=== PATIENT | male | born 2000 | race Caucasian/White ===

== ENCOUNTER 2021-04-15 13:49 | Observation (INO) ==
[2021-04-15 14:38] LABS: Basophils # (auto) 0.03 K/uL (0-0.2); Basophils % (auto) 0.4 %; Eosinophils # (auto) 0.17 K/uL (0-0.5); Hematocrit (blood only) 46.7 % (42-52); Immature Granulocytes # (auto) 0.01 K/uL (0.00-0.02); Immature Granulocytes % (auto) 0.1 %; Lymphocytes # (auto) 1.92 K/uL (1.2-3.4); Lymphocytes % (auto) 22.8 %; Mean Corpuscular Hemoglobin 28.2 pg (25-34); Mean Corpuscular Hgb Conc 34.3 g/dL (32-36); Mean Corpuscular Volume 82.2 fL (80-100); Mean Platelet Volume 9.5 fL (7.4-10.4); Monocytes # (auto) 1.42 K/uL (0.11-0.59); Monocytes % (auto) 16.8 %; Neutrophils # (auto) 4.88 K/uL (1.4-6.5); Neutrophils % (auto) 57.9 %; Platelet Count 359 K/uL (130-400); RDW Coefficient of Variation 14.5 % (11.5-14.5); RDW Standard Deviation 43.5 fL (36.4-46.3); Red Blood Count 5.68 M/uL (4.7-6.1); White Blood Count 8.43 K/uL (4.8-10.8)
[2021-04-15] MEDS ORDERED: SODIUM CHLORIDE 0.9% 1000ML 1,000 ML IV ONE (14:46)
--- NOTE | 2021-04-15 14:53 | Emergency Department Note ---
History of Present Illness General Chief complaint: Abdominal Pain Stated complaint: PANCREATITIS Time Seen by Provider: 04/15/21 14:30 Source: patient History of Present Illness Provider complaint: Abdominal pain Onset (ago): day(s) 6 Location: abdomen Radiation: back Pain Consistency: + constant Maximum Pain Intensity: 4 Quality: + aching Exacerbated By: + eating Associated symptoms: no chest pain, no cough, no fever/chills, no nausea/vomiting or no shortness of breath This is a 20-year-old male with a history of autoimmune pancreatitis presenting with abdominal pain for the past 6 days. He describes the pain as an achy sensation in the middle of his abdomen with radiation to his back. He states it has been constant. He rates it a 4 out of 10 in severity. It is worse with eating. He denies any associated vomiting or fever. He has had diarrhea. He denies any black or bloody stools. He was at [facility] and had a lipase of 4000 and so was sent here for further evaluation. He denies any cough or cold symptoms, chest pain, shortness of breath, or urinary symptoms. He does not drink alcohol. He does still have his gallbladder. Home Medications Medication Instructions Recorded Confirmed Type budesonide-formoterol HFA 160 2 puff INHALATION BID 04/15/21 04/15/21 History mcg-4.5 mcg/actuation aerosol inhaler (Symbicort) etanercept 50 mg/mL (1 mL) 50 mg SUBCUT DIRECTED 04/15/21 04/15/21 History subcutaneous syringe (Enbrel) montelukast 10 mg tablet 10 mg PO DAILY 04/15/21 04/15/21 History (Singulair) Allergies Allergy/AdvReac Type Severity Reaction Status Date / Time gluten Allergy Severe CELIAC Verified 04/15/21 16:17 DISEASE Past Med/Surg History Medical History Autoimmune pancreatitis Celiac disease Psoriasis Social History Smoking Status: Never smoker Feels Safe at Home: Yes Review of Systems See HPI for pertinent positives & negatives. and A total of 10 systems reviewed and were otherwise negative Physical Exam Vital Signs Vital Signs - 24 hr 04/15/21 13:52 04/15/21 15:30 04/15/21 15:37 Temperature 36.8 C Temperature Source Temporal Artery Scan Pulse Rate 102 H 90 Pulse Rate [Right Finger] 87 Pulse Rate from SpO2 Sensor 90 Respiratory Rate 16 20 16 Respiratory Effort / Characteristics Non-Labored Spontaneous Blood Pressure 124/79 Blood Pressure [Right Arm] 151/79 H Blood Pressure Mean 94 Blood Pressure Mean [Right Arm] 103 Blood Pressure Position [Right Arm] Sitting Pulse Oximetry 98 98 97 Oxygen Delivery Method Room Air Room Air Room Air Sepsis Recent Fever Within 48 Hours No Sepsis New/Unexplained Change in Mental Status No Sepsis Action Taken by Nursing No Action Required 04/15/21 15:40 04/15/21 15:50 04/15/21 16:00 Temperature Temperature Source Pulse Rate 86 90 86 Pulse Rate [Right Finger] Pulse Rate from SpO2 Sensor 88 90 87 Respiratory Rate 16 16 18 Respiratory Effort / Characteristics Blood Pressure 139/80 Blood Pressure [Right Arm] Blood Pressure Mean 99 Blood Pressure Mean [Right Arm] Blood Pressure Position [Right Arm] Pulse Oximetry 98 99 99 Oxygen Delivery Method Room Air Sepsis Recent Fever Within 48 Hours Sepsis New/Unexplained Change in Mental Status Sepsis Action Taken by Nursing 04/15/21 16:10 04/15/21 16:20 04/15/21 16:30 Temperature Temperature Source Pulse Rate 90 80 85 Pulse Rate [Right Finger] Pulse Rate from SpO2 Sensor 90 81 87 Respiratory Rate 20 18 20 Respiratory Effort / Characteristics Blood Pressure Blood Pressure [Right Arm] Blood Pressure Mean Blood Pressure Mean [Right Arm] Blood Pressure Position [Right Arm] Pulse Oximetry 98 98 98 Oxygen Delivery Method Sepsis Recent Fever Within 48 Hours Sepsis New/Unexplained Change in Mental Status Sepsis Action Taken by Nursing 04/15/21 16:40 Temperature Temperature Source Pulse Rate 78 Pulse Rate [Right Finger] Pulse Rate from SpO2 Sensor 74 Respiratory Rate 13 Respiratory Effort / Characteristics Blood Pressure Blood Pressure [Right Arm] Blood Pressure Mean Blood Pressure Mean [Right Arm] Blood Pressure Position [Right Arm] Pulse Oximetry 99 Oxygen Delivery Method Sepsis Recent Fever Within 48 Hours Sepsis New/Unexplained Change in Mental Status Sepsis Action Taken by Nursing Constitutional: Vital signs reviewed. Eyes: Pupils are equal round reactive to light. Conjunctiva are noninjected. ENT: Pharynx is clear without erythema or exudate. Mucous membranes are moist. Neck supple without meningeal signs. Respiratory: Clear to auscultation bilaterally. Breath sounds are equal bilaterally. Cardiovascular: Regular rate and rhythm. No rubs or gallops. GI: Soft, nondistended with mild periumbilical tenderness. Bowel sounds are present. Musculoskeletal: No peripheral edema. No CVA tenderness. Integumentary: No cyanosis. or jaundice. Negative Suresh and Santos Loomis signs. Neurological: The patient is awake and alert. No focal deficits. Psychiatric: Normal affect. Not anxious appearing. Course Administered Medications Discontinued Medications Sodium Chloride (Nss 1000ml) 1,000 mls @ 999 mls/hr IV .Q1H1M ONE Stop: 04/15/21 15:46 Last Infusion: 04/15/21 16:21 Dose: 0 mls/hr Documented by: [id number] Admin: 04/15/21 15:14 Dose: 999 mls/hr Documented by: [id number] Medical Decision Making Differential Diagnosis Pancreatitis, peptic ulcer disease, cholelithiasis, choledocholithiasis, alcohol abuse, autoimmune pancreatitis Medical Records Attestation: I reviewed the patient's medical records. I did perform a limited focused review of portions of the patient's old chart on the electronic medical record. The patient has had no recent pertinent visits to this hospital. Home Medications Current Medication List: was personally reviewed by me Laboratory Data Attestation: I reviewed the patient's lab results. Result diagrams: 04/15/21 14:30 04/15/21 14:30 Lab Results 04/15/21 04/15/21 04/15/21 Range/Units 14:30 14:30 15:26 WBC 8.43 (4.8-10.8) K/uL RBC 5.68 (4.7-6.1) M/uL Hgb 16.0 (14.0-18.0) g/dL Hct 46.7 (42-52) % MCV 82.2 (80-100) fL MCH 28.2 (25-34) pg MCHC 34.3 (32-36) g/dL RDW Std Deviation 43.5 (36.4-46.3) fL RDW Coeff of Florencio 14.5 (11.5-14.5) % Plt Count 359 (130-400) K/uL MPV 9.5 (7.4-10.4) fL Immature Gran % (Auto) 0.1 % Neut % (Auto) 57.9 % Lymph % (Auto) 22.8 % Ida % (Auto) 16.8 % Eos % (Auto) 2.0 % Baso % (Auto) 0.4 % Neut # (Auto) 4.88 (1.4-6.5) K/uL Lymph # (Auto) 1.92 (1.2-3.4) K/uL Ida # (Auto) 1.42 H (0.11-0.59) K/uL Eos # (Auto) 0.17 (0-0.5) K/uL Baso # (Auto) 0.03 (0-0.2) K/uL Immature Gran # (Auto) 0.01 (0.00-0.02) K/uL Sodium 137 (136-145) mmol/L Potassium 4.0 (3.5-5.1) mmol/L Chloride 100 (98-107) mmol/L Carbon Dioxide 29 (21-32) mmol/L Anion Gap 8 (3-11) BUN 12 (6-23) mg/dl Creatinine 1.13 (0.6-1.4) mg/dl Est Cr Clr Drug Dosing 122.2 ml/min Est GFR ( Amer) 107.8 ml/min Est GFR (Non-Af Amer) 93.1 ml/min BUN/Creatinine Ratio 10.6 (10-20) Glucose 90 (70-99(Fasting)) mg/dl Calcium 10.1 (8.5-10.1) mg/dl Total Bilirubin 0.7 (0.2-1.0) mg/dl AST 16 (13-39) U/L ALT 33 (7-52) U/L Alkaline Phosphatase 83 (34-104) U/L Total Protein 8.0 (6.0-8.3) gm/dl Albumin 4.6 (3.4-5.0) gm/dl Globulin 3.4 (2.5-4.0) gm/dl Albumin/Globulin Ratio 1.4 (0.9-2) Lipase 836 H (11-82) U/L SARS-CoV-2, RNA, NAAT NEGATIVE (NEGATIVE) ECG Data Attestation: I personally reviewed and interpreted this ECG as follows: Indication: + abdominal pain Rate (beats per minute): 90 Rhythm: + normal sinus ECG Doyle: + Normal ECG ST segments: + repolarization abnormalities ECG Findings: no PVCs Comparison ECG Date: no prior available MDM Narrative I did evaluate the patient as noted above. The patient has a history of autoimmune pancreatitis. He is presenting with similar symptoms for the past 6 days. He had a lipase which was over 4000 at [facility] and so he was sent here. IV access was established. He was given normal saline IV.I did order and review the patient's blood work as noted in the electronic medical record. CBC is unremarkable without leukocytosis, anemia or left shift. Electrolytes and LFTs are unremarkable. Lipase is a 836. I did discuss the test results with the patient. I did discuss the case with the hospitalist and casework specialist. COVID 19 testing is negative. Impression & Plan Pancreatitis Discharge Plan Visit Data Chief Complaint: Abdominal Pain Stated Complaint: PANCREATITIS ED Provider: Jose Conde Discharge Problem: Pancreatitis Patient Disposition: Being Evaluated by Hospitalist Forms Stand Alone Forms: My [facility] Prescriptions Prescriptions: No Action montelukast [Singulair] 10 mg Tablet 10 mg PO DAILY RF: 0 Enbrel 50 mg/mL (1 mL) Syringe 50 mg SUBCUT DIRECTED RF: 0 budesonide-formoterol [Symbicort] 160-4.5 mcg/actuation Hfa Aerosol Inhaler 2 puff INHALATION BID RF: 0 Referrals Referrals: PCP,NO [Physician] -
[2021-04-15 15:00] LABS: BUN Creatinine Ratio 10.6 (10-20); Calcium 10.1 mg/dl (8.5-10.1); Creatinine Clr Calc Pharmacy 122.2 ml/min; Est GFR (African American) 107.8 ml/min; Est GFR (Non-African American) 93.1 ml/min
[2021-04-15 15:17] LABS: Albumin Globulin Ratio 1.4 (0.9-2); Albumin Level 4.6 gm/dl (3.4-5.0); Bilirubin,Total 0.7 mg/dl (0.2-1.0); Globulin 3.4 gm/dl (2.5-4.0)
[2021-04-15] MEDS ORDERED: LACTATED RINGER'S 1,000 ML IV ONE (17:16)
--- NOTE | 2021-04-15 17:19 | History & Physical Report ---
Date of Service April 15, 2021 Assessment & Plan (1) Pancreatitis: Plan: No definitive history of autoimmune pancreatis (or pancreatitis in general) per his executive associate outpatient notes. No known IgG4 elevated. Therefore will get US liver to assess for biliary dilatation and gallstones NSS 1L bolus given in ER, will give additional LR 1L bolus now then @ 125ml/hr No need for steroids or autoimmune workup at this stage - previously resolved without steroids (2) Celiac disease: Plan: Will need gluten free once able to tolerate diet (3) Psoriasis: Plan: Noted to be on Enbrel as outpatient Plan: VTE Prophylaxis - low risk Diet - NPO Disposition - admit to med/surg Admission and Anticipated Discharge Date Admission Date: Apr 15, 2021 History of Present Illness Chief Complaint: Abdominal pain Primary Care Provider: [facility] Yobany Chase is a 20 year old male who presents to the ER with abdominal pain. 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 Previous episode of pancreatitis in August 2018 resolved without admission and IV fluids given in the ER. He reports autoimmune pancreatitis was suspected due to his celiacs/psoriasis, he was on no medications suspected, does not drink alcohol and MRCP did not show biliary cause however no known IgG4 levels were taken. On this occasion he has had 6 days of intermittent umbilical abdominal pain radiating to the back. No change in bowels, melena or bright red blood in stool. Mild nausea however currently he feels this has resolved. He initially went to [facility] and lipase was elevated and on discussion with his executive associate was advised to go to the ER. Here his lipase was elevated to 836 U/L. He was referred to medicine for admission and ongoing management of pancreatitis. Allergies Allergy/AdvReac Type Severity Reaction Status Date / Time gluten Allergy Severe CELIAC Verified 04/15/21 16:17 DISEASE Home Medications Medication Instructions Recorded Confirmed Type budesonide-formoterol HFA 160 2 puff INHALATION BID 04/15/21 04/15/21 History mcg-4.5 mcg/actuation aerosol inhaler (Symbicort) etanercept 50 mg/mL (1 mL) 50 mg SUBCUT DIRECTED 04/15/21 04/15/21 History subcutaneous syringe (Enbrel) montelukast 10 mg tablet 10 mg PO DAILY 04/15/21 04/15/21 History (Singulair) Past Med/Surg History Medical History Autoimmune pancreatitis Celiac disease Psoriasis Social History Smoking Status: Never smoker Second Hand Exposure: No; Do You Dip or Chew Tobacco: No; Tobacco Cessation Education Requested by Patient: No Hx Alcohol Use: No Hx Substance Use: No Preferred Language: Icelandic Communication Ability: Effective 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 Operator 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 Required: No Beliefs That Will Affect Care: None Current Living Situation Comment: roommates Other Information That Helps Us Care for You: No Feels Safe at Home: Yes Safety Concerns: Feels Safe At This Time Assistive Devices: Glasses Review of Systems Review of Systems: All systems reviewed & are unremarkable except as noted in HPI & below Physical Exam Constitutional: WD/WN, vitals as above Eyes: + anicteric sclerae; normal pupil size ENMT: external ear and nose normal, oropharynx normal Neck: trachea midline, no thyromegaly Respiratory: normal respiratory effort, lungs clear to auscultation Cardiovascular: RRR, no murmur, no edema Gastrointestinal (Abdomen): Inspection/Auscultation: normal bowel sounds Percussion/Palpation: + abdomen tender (umbilical) and abdomen soft; no guarding and abdomen not rigid Musculoskeletal: no cyanosis or clubbing, extremities motor strength 5/5 Skin: no rashes, warm and dry Neurologic: moves all extremities and awake; not confused Psychiatric: A+Ox3, euthymic affect Results & Data Results & Data ([facility]) Vital Signs (Past 12 Hours) Vital Signs Temp Pulse Pulse Resp BP BP Pulse Ox 04/15/21 16:40 78 13 99 04/15/21 16:30 85 20 98 04/15/21 16:20 80 18 98 04/15/21 16:10 90 20 98 04/15/21 16:00 86 18 139/80 99 04/15/21 15:50 90 16 99 04/15/21 15:40 86 16 98 04/15/21 15:37 90 16 97 04/15/21 15:30 87 20 151/79 H 98 04/15/21 13:52 36.8 C 102 H 16 124/79 98 Laboratory Results Abnormal lab results 04/15/21 04/15/21 04/15/21 Range/Units 14:30 14:30 17:41 [place] # (Auto) 1.42 H (0.11-0.59) K/uL Lipase 836 H (11-82) U/L Urine Ketones 2+ H (Negative) Medications Administered ER Medications Given: NSS 1L bolus Code Status & VTE Plan Code Status Full VTE Prophylaxis Plan VTE Prophylaxis will be ordered: No Reason for no VTE drug order: Treatment not indicated Reason for no VTE mechanical prophylaxis: Treatment not indicated PG Care Time/CCT Total # of Minutes Spent Total Time Spent with Patient: Total time spent is greater than 50% in coordination of care (as documented) at patient's floor/unit and/or counseling patient: Coding Level of Care Code INT OBSERVATION CARE 50M LVL 2 Diagnoses Pancreatitis K85.90 Acute pancreatitis complication: unspecified Chronicity: acute Pancreatitis type: unspecified pancreatitis type Celiac disease K90.0 Psoriasis L40.9 (1) Pancreatitis Acute pancreatitis complication: unspecified Chronicity: acute Pancreatitis type: unspecified pancreatitis type Qualified Code(s): K85.90 - Acute pancreatitis without necrosis or infection, unspecified
[2021-04-15 17:50] LABS: Appearance Urine Clear (Clear); Bilirubin Urine Negative (Negative); Blood Urine Negative (Negative); Color Urine Dark Yellow; Glucose Urine UA Negative (Negative); Ketones Urine 2+ (Negative); Leukocyte Esterase Urine Negative (Negative); Nitrite Urine Negative (Negative); Protein Urine Negative (Negative); Urobilinogen Urine Negative (Negative)
[2021-04-15] MEDS ORDERED: NON-FORMULARY MEDICATION (Etanercept [Enbrel] 50 mg/mL (1 mL) Syringe) SQ SCH (19:52)
[2021-04-15] MEDS ORDERED: HYDROmorphone INJ 0.5 MG/0.5 ML SYR IV PRN (19:52)
[2021-04-15] MEDS: LACTATED RINGER'S 1,000 ML IV SCH (20:19)
[2021-04-15] MEDS: FLUTICASONE/VILANTEROL 200/25MCG 14 PUFFS/INHALER INH SCH (21:07)
[2021-04-15] MEDS: MONTELUKAST SODIUM 10 MG TABLET PO SCH (21:07)
[2021-04-16] MEDS ORDERED: Nursing to Pharmacy Communication SCH (02:30)
[2021-04-16] MEDS: LACTATED RINGER'S 1,000 ML IV SCH ×3 (03:51→19:44)
--- NOTE | 2021-04-16 07:41 | Ultrasound Report ---
ABDOMINAL ULTRASOUND, RIGHT UPPER QUADRANT HISTORY: Epigastric pain. pancreatitis r/o biliary dilatation. COMPARISON: None. FINDINGS: Pancreas: The pancreas is mostly obscured by bowel gas. The visualized pancreas is hypoechoic. Liver: The liver is echogenic consistent with fatty change. Focal fatty sparing adjacent to the gallb ladder fossa. Gallbladder: No gallbladder wall thickening. No gallstones. Negative sonographic Euceda sign. CBD: 6.5 mm. Right kidney: No hydronephrosis. IMPRESSION: 1. The pancreas is mostly obscured by bowel gas. The visualized pancreas is hypoechoic. This could re present findings consistent with acute pancreatitis. Recommend correlation with pancreatic enzymes. 2. No gallbladder wall thickening. No gallstones. 3. Hepatic steatosis. 4. Borderline dilated common bile duct is 6.5 mm. ACT 112: Negative or not required by law. Electronically signed by: Quirino Burrell M.D. 04/16/2021 7:39 AM
[2021-04-16 07:49] LABS: Hematocrit (blood only) 43.5 % (42-52); Hemoglobin 14.6 g/dL (14.0-18.0); Mean Corpuscular Hemoglobin 27.8 pg (25-34); Mean Corpuscular Hgb Conc 33.6 g/dL (32-36); Mean Corpuscular Volume 82.9 fL (80-100); Mean Platelet Volume 9.2 fL (7.4-10.4); Platelet Count 299 K/uL (130-400); RDW Coefficient of Variation 14.5 % (11.5-14.5); RDW Standard Deviation 43.9 fL (36.4-46.3); Red Blood Count 5.25 M/uL (4.7-6.1); White Blood Count 7.08 K/uL (4.8-10.8)
[2021-04-16 08:19] LABS: BUN Creatinine Ratio 10.5 (10-20); Calcium 8.6 mg/dl (8.5-10.1); Est GFR (Non-African American) 114.8 ml/min; Potassium 4.3 mmol/L (3.5-5.1)
[2021-04-16 08:35] LABS: Albumin Globulin Ratio 1.3 (0.9-2); Albumin Level 3.9 gm/dl (3.4-5.0); Bilirubin,Total 0.9 mg/dl (0.2-1.0); Globulin 2.9 gm/dl (2.5-4.0); Total Protein 6.8 gm/dl (6.0-8.3)
--- NOTE | 2021-04-16 12:47 | Magnetic Resonance Report ---
MRCP CLINICAL HISTORY: pancreatitis-- assess for cyst/pseudocyst, sludge TECHNIQUE: Utilizing a 1.5 Libia magnet and dedicated coil, multiplanar, multiecho imaging of [facility] er abdomen was performed utilizing heavily T2 weighted pulsing sequences without IV contrast. COMPARISON STUDY: Right upper quadrant ultrasound April 15, 2021. FINDINGS: Hepatic steatosis is better depicted on ultrasound of April 07, 2021. The liver is mildl y enlarged, measuring 20.4 cm AP dimension. No biliary ductal dilatation is present. No common bile d uct calculi are identified. There is trace peripancreatic fluid. The pancreas may be slightly [place] us, particularly within the body and tail. No peripancreatic fluid collection is present. There is no pancreatic ductal dilatation. The course of the pancreatic duct is difficult to follow on this exam. Gallbladder is suboptimally assessed on this exam but there are no definite gallstones. There is a 1 .5 cm suspected cyst within the upper pole of the left kidney. There is a smaller left renal cyst. Th ere is no hydronephrosis. Borderline splenomegaly. Prominent mesenteric lymph node on axial image 21 of 32 measures 1 cm short axis demonstrated. This is likely benign. IMPRESSION: 1. Trace peripancreatic fluid suggestive of acute pancreatitis. No peripancreatic fluid collection. 2. No biliary duct dilatation. No common bile duct calculi identified. 3. Suboptimal evaluation of the gallbladder but no gallstones identified. 4. Hepatic steatosis and mild hepatomegaly. ACT 112: Negative or not required by law. Electronically signed by: Scar Cuellar M.D. 04/16/2021 12:46 PM
--- NOTE | 2021-04-16 13:00 | Electrocardiogram Report ---
Test Reason : Blood Pressure : / mmHG Vent. Rate : 090 BPM Atrial Rate : 090 BPM P-R Int : 134 ms QRS Dur : 090 ms QT Int : 358 ms P-R-T Axes : 040 -07 034 degrees QTc Int : 437 ms Normal sinus rhythm Moderate voltage criteria for LVH, may be normal variant Borderline ECG No previous ECGs available Confirmed by Juan Almaguer ([id number]) on 04/16/2021 1:00:37 PM Referred By: REFERRED SELF Confirmed By:Juan Almaguer
--- NOTE | 2021-04-16 15:41 | Hospitalist Progress Note ---
Date of Service April 16, 2021 Assessment & Plan (1) Pancreatitis: Plan: 20-year-old white male with an underlying history of celiac disease and psoriatic arthritis presented with a 6-day history of abdominal pain and elevated lipase of 4710 (drawn as an outpatient). * This is his second bout of pancreatitis since 2018 * In review of his old records, and exact cause was not identified. Follows GI in [place] ([place] home state) and even saw GI at [facility] * At any rate, presenting lipase was 836. Is 1079 today * Did not have CT during his ED W/U * Right upper quadrant ultrasound showed borderline common bile duct dilatation at 6.5 but otherwise unremarkable * Normal white blood cell count. Normal bilirubin, AST and ALT * Denies alcohol use * Is not a diabetic * Does take Enbrel. [facility] * In review of old records, did have IgG subclass 4 that was slightly elevated at 140 but not 4x upper limit of normal (which would be needed to make the dx) * Given lack of radiographic imaging upon arrival and concern for slightly dilated common bile ductWill obtain an MRCP to assess for sludge in the commo n bile duct but also evidence of cyst/pseudocyst * Denies purging or bulimia * I have reached out to patient's established lace machine operator as there seems to have been a significant work-up in the past. I am wondering if this patient would perhaps be a candidate for Creon. I am awaiting a phone call back. May consider consulting our GI but again, given he has had a substantial work-up in the past may be easier to touch base with his established lace machine operator * Although lipase remains slightly elevated, it has improved from initial lipase of 4710. In addition, his pain has nearly resolved * Will initiate clear liquids and advance as tolerated * Will repeat IgG subclass reference labs as slightly elevated in the past; however, not 2-4 times upper level of normal. This was several years ago thus will repeat. He does have an underlying history of psoriatic arthritis and celiac disease and given these autoimmune diseases, is at risk for having additional * Add a triglyceride level for completeness sake (2) Celiac disease: Plan: * gluten free diet (3) Psoriasis: Plan: * on Enbrel. No literature to suggest that this is associated with Pancreatitis Plan: Plan of care will be discussed with Dr. Rodas. Further orders as warranted Admission and Anticipated Discharge Date Admission Date: April 15, 2021 Supervising Physician Co-Signing Physician Notes Attending Attestation - Chart reviewed, care plan d/w PA Daysi Burt. I agree with the lópez components of her documentation. Patient will need very close outpatient f/u of his recurrent pancreatitis (2 episodes in 2 years) given the exact etiology is uncertain. Endoscopic u/s ? Trend lipase. Desmond Rodas MD Subjective Lengthy discussion with patient regarding his history. 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 He was first diagnosed with pancreatitis in 2018. At that time, he had been started on Enbrel just prior to this flare and it was thought to be the cause. Enbrel stopped. Referred to Dr. Meyer. Work-up done including CT scan and ultrasound along with additional labs. His IgG for was 140 and he was referred to [facility]. Was placed back on Enbrel as told this was not the etiology. There was question that he had autoimmune pancreatitis but was told this was not the case. He has not had any additional flares since that time. Approximately 6 days ago, developed abdominal pain that was in the left upper quadrant and radiating into his back. Denied associated nausea, vomiting, fevers or chills. Pain was constant in nature prompting him to be seen by [facility]. Had labs drawn and his lipase was elevated at 4710 (I did review this at his permission). His established GI doctor was notified and patient referred to the ED. Upon presentation into the ED, his lipase was slightly elevated at 836. It is 1079 today. Did not have a CT scan of the abdomen or pelvis. Liver ultrasound showed mildly dilated common bile duct of 6.5 mm but otherwise normal ultrasound. He has not a diabetic. He denies alcohol use. He denies bulimia or purging. Patient does have celiac disease and reports he is compliant with his gluten- free diet. Despite this, does have frequent loose stools. Hospitalized overnight and has been made n.p.o. for bowel rest with aggressive IV hydration. This morning, his pain is vague (1/10) without nausea or vomiting. Review of Systems Review of Systems: All systems reviewed and are unremarkable except as noted in HPI and below Denies fevers, chills, headache, nasal congestion, sore throat, cough, chest pain, shortness of breath, palpitations, orthopnea, PND, abdominal pain, nausea, vomiting, diarrhea, constipation, dysuria, hematuria, frequency, back pain, joint pain or swelling, easy bruising or bleeding, skin lesions or rashes. Physical Exam Physical Exam: General: Resting comfortably in his hospital bed. Does not appear ill or toxic. NAD. HEENT: Head is AT/NC. Buccal mucosa is moist and pink Neck: No JVD. Negative hepatojugular reflex Cardiac: RRR without M/G/R Lungs: CTA without W/R/R Abdomen: No evidence of Santos Loomis or Orange sign. X4.] Soft and nontender in all quadrants. Extremities: No peripheral clubbing cyanosis or edema Neuro: A&O X4. Cranial nerves II through XII are grossly intact. No focal neuro deficits Skin: No obvious skin lesions or rashes Psych: Appropriate affect. Pleasant and cooperative Results & Data Results & Data ([facility]) Vital Signs (Past 12 Hours) Vital Signs Temp Pulse Resp BP Pulse Ox 04/16/21 14:18 36.7 C 77 17 145/84 H 97 04/16/21 08:26 36.6 C 80 17 122/75 94 Laboratory Results 04/16/21 07:34 04/16/21 07:34 Lipase: 1079 PG Care Time/CCT Total # of Minutes Spent Total Time Spent with Patient: Total time spent is greater than 50% in coordination of care (as documented) at patient's floor/unit and/or counseling patient: Coding Level of Care Code 13987 Subseq Obs Care Lvl 3 Diagnoses Pancreatitis K85.90 Acute pancreatitis complication: unspecified Chronicity: acute Pancreatitis type: unspecified pancreatitis type Celiac disease K90.0 Psoriasis L40.9 (1) Pancreatitis Acute pancreatitis complication: unspecified Chronicity: acute Pancreatitis type: unspecified pancreatitis type Qualified Code(s): K85.90 - Acute pancreatitis without necrosis or infection, unspecified
[2021-04-16] MEDS: MONTELUKAST SODIUM 10 MG TABLET PO SCH (21:47)
[2021-04-16] MEDS: FLUTICASONE/VILANTEROL 200/25MCG 14 PUFFS/INHALER INH SCH (21:47)
[2021-04-17] MEDS: LACTATED RINGER'S 1,000 ML IV SCH ×2 (03:26→10:15)
[2021-04-17 08:21] LABS: Basophils # (auto) 0.05 K/uL (0-0.2); Basophils % (auto) 0.7 %; Eosinophils # (auto) 0.24 K/uL (0-0.5); Eosinophils % (auto) 3.3 %; Hematocrit (blood only) 44.6 % (42-52); Hemoglobin 14.9 g/dL (14.0-18.0); Immature Granulocytes # (auto) 0.01 K/uL (0.00-0.02); Immature Granulocytes % (auto) 0.1 %; Lymphocytes # (auto) 1.86 K/uL (1.2-3.4); Lymphocytes % (auto) 25.8 %; Mean Corpuscular Hemoglobin 27.7 pg (25-34); Mean Corpuscular Hgb Conc 33.4 g/dL (32-36); Mean Corpuscular Volume 83.1 fL (80-100); Mean Platelet Volume 9.1 fL (7.4-10.4); Monocytes # (auto) 1.18 K/uL (0.11-0.59); Monocytes % (auto) 16.4 %; Neutrophils # (auto) 3.86 K/uL (1.4-6.5); Neutrophils % (auto) 53.7 %; Platelet Count 306 K/uL (130-400); RDW Coefficient of Variation 14.4 % (11.5-14.5); RDW Standard Deviation 43.6 fL (36.4-46.3); Red Blood Count 5.37 M/uL (4.7-6.1)
[2021-04-17 08:52] LABS: BUN Creatinine Ratio 8.6 (10-20); Calcium 8.7 mg/dl (8.5-10.1); Creatinine Clr Calc Pharmacy 149.2 ml/min; Est GFR (African American) 136.5 ml/min; Est GFR (Non-African American) 117.8 ml/min; Potassium 3.9 mmol/L (3.5-5.1)
[2021-04-17] MEDS ORDERED: ETANERCEPT 50 MG/ML SQ SCH (09:00)
[2021-04-17 09:08] LABS: Albumin Globulin Ratio 1.2 (0.9-2); Albumin Level 3.8 gm/dl (3.4-5.0); Bilirubin,Total 0.7 mg/dl (0.2-1.0); Globulin 3.1 gm/dl (2.5-4.0); Magnesium 2.1 mg/dl (1.7-2.4); Total Protein 6.9 gm/dl (6.0-8.3)
--- NOTE | 2021-04-17 15:36 | Discharge Summary ---
Date of Service April 17, 2021 Admission HPI Per Admitting Provider Yobany Chase is a 20 year old male who presents to the ER with abdominal pain. 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 Previous episode of pancreatitis in August 2018 resolved without admission and IV fluids given in the ER. He reports autoimmune pancreatitis was suspected due to his celiacs/psoriasis, he was on no medications suspected, does not drink alcohol and MRCP did not show biliary cause however no known IgG4 levels were taken. On this occasion he has had 6 days of intermittent umbilical abdominal pain radiating to the back. No change in bowels, melena or bright red blood in stool. Mild nausea however currently he feels this has resolved. 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 Here his lipase was elevated to 836 U/L. He was referred to medicine for admission and ongoing management of pancreatitis. Principal Diagnosis 1. Pancreatitis Discharge Exam General: Resting comfortably in his hospital bed. Does not appear ill or toxic. NAD. HEENT: Head is AT/NC. Buccal mucosa is moist and pink Neck: No JVD. Negative hepatojugular reflex Cardiac: RRR without M/G/R Lungs: CTA without W/R/R Abdomen: No evidence of Santos Loomis or Suresh sign. X4. Soft and nontender in all quadrants. Extremities: No peripheral clubbing cyanosis or edema Neuro: A&O X4. Cranial nerves II through XII are grossly intact. No focal neuro deficits Skin: No obvious skin lesions or rashes Psych: Appropriate affect. Pleasant and cooperative Discharge Data Allergies Allergy/AdvReac Type Severity Reaction Status Date / Time gluten Allergy Severe CELIAC Verified 04/15/21 16:17 DISEASE Consultations 04/15/21 16:55 ED Decision to Admit Stat Ordered Studies 04/15/21 17:22 US liver Urgent IMPRESSION: 1. The pancreas is mostly obscured by bowel gas. The visualized pancreas is hypoechoic. This could represent findings consistent with acute pancreatitis. Recommend correlation with pancreatic enzymes. 2. No gallbladder wall thickening. No gallstones. 3. Hepatic steatosis. 4. Borderline dilated common bile duct is 6.5 mm. 04/16/21 10:12 MR MRCP Urgent IMPRESSION: 1. Trace peripancreatic fluid suggestive of acute pancreatitis. No peripancreatic fluid collection. 2. No biliary duct dilatation. No common bile duct calculi identified. 3. Suboptimal evaluation of the gallbladder but no gallstones identified. 4. Hepatic steatosis and mild hepatomegaly. Hospital Course (1) Pancreatitis: 20-year-old white male with an underlying history of celiac disease and psoriatic arthritis presented with a 6-day history of abdominal pain and elevated lipase of 4710 (drawn as an outpatient). * This is his second bout of pancreatitis since 2018 * In review of his old records, and exact cause was not identified. Follows GI in [place] (his home state) and even saw GI at [facility] * Lipase done prior to hospitalization: 4710. * WBC normal and patient afebrile * Liver ultrasound showing concern for common bile duct dilatation of 6.5 mm * Patient hospitalized and made n.p.o. for bowel rest and aggressively hydrated with IV fluids * Exact etiology of his pancreatitis is unclear * With review of old records, he did have a mildly elevated IgG subclass 4 of 140 (upper limit 104). Although elevated, not 2x above normal limit to diagnostically confirm autoimmune pancreatitis * MRCP done showing no evidence of sludge in the common bile duct. No bile duct dilatation. Inflammatory changes of the pancreas seen but otherwise no abnormalities * Stool for pancreas elastase obtainedpending * Prior IgG subclass levels drawn in 2018 thus these were repeatedpending * Repeat Covid test done as some correlation with pancreatitis seen. Repeat test negative * triglyceride level ordered and normal * Patient is not a diabetic. He does not drink alcohol. Denies bulimia or purging * At this point time, patient has shown favorable response to bowel rest and has since been initiated on clear liquids. * Lipase has improved although still slightly elevated at 932 * His diet has been advanced for which he is tolerating. He denies abdominal pain, nausea or vomiting * At this point in time, I think the next approach would be an endoscopic ultrasound. In lengthy discussion with patient, he does have frequently loose stools despite adhering to his gluten-free diet. May consider Creon; however, would not add this for at least 1 to 2 weeks following this current flare. * Have reached out to Dr. Meyer (patient's established GI physician) and unfortunately was unable to run this case by him but was able to get this patient an appointment for next week * Patient is currently medically and hemodynamically stable for discharge to home to follow-up with GI. He should return to the ED for any new or worsening symptoms. (2) Celiac disease: * gluten free diet (3) Psoriasis: * on Enbrel. No literature to suggest that this is associated with Pancreatitis Plan of care will be discussed with Dr. Rodas. Further orders as warranted Total Time Total Time Spent Total Time Spent (In Minutes): 30 minutes Discharge Plan Discharge Items Patient Disposition: Home - Self-Care Reason For Visit: ACUTE PANCREATITIS Discharge Diagnosis: 1. Acute pancreatitis 2. 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 The exact etiology of your pancreatitis is unknown. It is suspected that you could have underlying autoimmune pancreatitis given your history of psoriatic arthritis and celiac sprue. Labs were drawn to help differentiate autoimmune pancreatitis. These are pending. You responded favorably and are stable enough for discharge to home with a low residue/gluten-free diet. You need to follow-up with your baby formula worker next week, 04/24 at 11:00 Your baby formula worker may decide to initiate something called Creon which is a pancreatic enzyme. This is at his discretion. Prior to initiation of this medication, he may pursue an endoscopic ultrasound. If you develop increasing symptoms such as return of abdominal pain, nausea or vomitingyou should present back to the emergency department Follow-up recommendations: 1. Follow-up with gastroenterology on 04/24 at 11:00 Pending Studies at Discharge: Yes Studies:: IgG subclass 4, pancreatic elastase Stand-Alone Forms: My [facility] [employer] Medications and DC Order Prescriptions: Continued montelukast [Singulair] 10 mg Tablet 10 mg PO DAILY RF: 0 Enbrel 50 mg/mL (1 mL) Syringe 50 mg SUBCUT DIRECTED RF: 0 budesonide-formoterol [Symbicort] 160-4.5 mcg/actuation Hfa Aerosol Inhaler 2 puff INHALATION BID RF: 0 Discharge Orders: Discharge Order (Routine); Ordered 04/17/21 Ordered By: Daysi Burt Admission Data Admit Date/Time: 04/15/21 17:40 Attending Provider: Desmond Rodas Admit Provider: Desmond Weinberg Primary Care Provider: [facility] Other Providers: Desmond Weinberg Other Interventions: Discharge Summary Assessment (RN) Last Done: 04/17/21 14:08 Supervising Physician Co-Signing Physician Notes Attending Attestation & Discharge Note - Pt seen/examined, chart reviewed, care plan d/w PA Daysi Burt. I agree w/ the lópez components of her documentation. 20yo male with celiac disease & one prior history of acute pancreatitis - presenting with same. Peak lipase - 1079. No gallstones/biliary tract disease seen on RUQ u/s or MCRP. No pancreatic divisum. Etiology of recurrent pancreatitis uncertain. Improved with customary measures including bowel rest and copious IV fluids. He has scheduled follow-up with his primary GI specialist on 04/24/21. ?need for EUS, other testing? Discharge exam - gen - nad eyes - nonicteric heart - RRR, s1 s2, no murmur lungs - CTA b/l abd - soft NT ND BS+; no HSM ext - no edema, pulses 2+ b/l Desmond Rodas MD Coding Level of Care Code 66115 OBS Care - Discharge Diagnoses Pancreatitis K85.90 Acute pancreatitis complication: unspecified Chronicity: acute Pancreatitis type: unspecified pancreatitis type Celiac disease K90.0 Psoriasis L40.9
== END 2021-04-17 15:09 | disposition home or self-care (01) ==
LOC: EDBD → ED 13:49 → 3W 13:49 → SUATTDRO 17:40 → 3W 19:40